=== PATIENT | female | born 1945 | race Caucasian/White ===

== ENCOUNTER → 2017-03-07 08:58 | Outpatient (CLI) | payer MEDICARE, OTHER | END | disposition home or self-care (01) | LOC: D.CT 08:58 | DX: R05 Cough (principal) ==

== ENCOUNTER → 2017-03-14 10:12 | Outpatient (CLI) | payer MEDICARE, OTHER | END | disposition home or self-care (01) | LOC: D.MRI 10:12 | DX: R91.8 Other nonspecific abnormal finding of lung field (principal) ==